=== PATIENT | female | born 1970 | race Caucasian/White ===

== ENCOUNTER 2022-09-01 12:31 | Outpatient (CLI) | payer BC | END 2022-09-01 12:32 | disposition home or self-care (01) | LOC: CSHMRI 12:31 | PROVIDERS: ATTEND Otolaryngology Plastic Surgery within the Head & Neck | DX: H90.42 Sensorineural hearing loss, unilateral, left ear, with unrestricted hearing on the contralateral side (principal); H83.8X2 Other specified diseases of left inner ear; G93.9 Disorder of brain, unspecified | CPT/HCPCS: 70553 ==

== ENCOUNTER → 2023-01-26 | Day surgery (SDC) | payer BC | LOC: CSHULT 12:24 | PROVIDERS: ATTEND Obstetrics & Gynecology | DX: N63.13 Unspecified lump in the right breast, lower outer quadrant (principal) | CPT/HCPCS: 19083; 88305 ==

== ENCOUNTER 2023-09-25 08:44 | Outpatient (CLI) | payer BC ==
[2023-09-25] MEDS ORDERED: Magnevist 469MG/ML 20 ML VIAL ONE (09:33)
== END 2023-09-25 08:45 | disposition home or self-care (01) ==
LOC: CSHMRI 08:44
PROVIDERS: ATTEND Otolaryngology Otology & Neurotology
DX: D33.3 Benign neoplasm of cranial nerves (principal); Z98.890 Other specified postprocedural states; G51.9 Disorder of facial nerve, unspecified
CPT/HCPCS: 70553; A9579